=== PATIENT | female | born 1985 | race Caucasian/White ===

== ENCOUNTER 2024-06-04 14:56 | Outpatient (AMB) | payer SELFPAY ==
[2024-06-04 15:06] VITALS: BP 124/78; PULSE 110; RESP 20; TEMP 36.9; O2SAT 98; BMI 20.5
--- NOTE | 2024-06-04 15:06 | GYNCLNT_ITS ---
Vital Signs 06/04/24 15:06 Height 1.6 m Height Method Stated Weight 52.39 kg Weight Measurement Method Standing Scale BMI 20.5 BP 124/78 Blood Pressure Source Automatic Cuff Blood Pressure Location Left Upper Arm Position Sitting Respiration 20 Pulse 110 H Pulse Source Monitor Temp 98.4 F Temp Source Oral Pulse Oximetry (%) 98 Oxygen Delivery Method Room Air Allergies/Home Meds Allergies & Medications Allergies No Known Allergies Allergy (Verified 06/04/24 15:08) Medication Reconciliation fluconazole 150 mg tablet 150 mg PO QDAY 14 days #14 tabs 06/06/24 [Rx] Intake Visit Data Collection New Patient or Established: New Patient (never been to [facility]) Reason for Visit:: IUD REMOVAL Seen by Clinical Staff ONLY (RN/MA): No Talent Buyer Required: No Do You Feel Safe at Home: Yes Authorities Contacted: N/A PCP or OBGYN visit in last 3 months: No Hx Now: No Are you currently on any form of Control: Yes Pain Present Currently: No Pain Scale Used: Reed-Mullins/Numerical Pain scale:: 0 Smoking Status Smoking Status: Never smoker Questionnaires Covid-19 Vaccine Questionnaire Has patient been vacinated for Covid-19 Have you been vacinated for Covid-19: Yes PHQ-9 PHQ-2 Over the last 2 weeks, how often have you been bothered by any of the following problems? 1. Little interest or pleasure in doing things: not at all 2. Feeling down, depressed, or hopeless: not at all Total score: 0 PHQ-9 3. Trouble falling or staying asleep, or sleeping too much: Not at all 4. Feeling tired or having little energy: Not at all 5. Poor appetite or overeating: Not at all 6. Feeling bad about yourself - or that you are a failure or have let yourself or your family down: Not at all 7. Trouble concentrating on things, such as reading the newspaper or watching television: Not at all 8. Moving or speaking so slowly that other people could have noticed? - Or the opposite - being so fidgety or restless that you have been moving around a lot more than usual: not at all 9. Thoughts that you would be better off or of hurting yourself in some way: Not at all Total score: 0 Source: Developed by Drs. Calderon Oliva, Christa Hughes, Pritesh Sarah and colleagues, with an educational jim from [employer]. Depression screen completed yes Social History Living Situation History Marital Status: Lives With: Family Housing: House Housing Other:: Patient is a physical therapist. Her does cardiac u/s 2 children Tobacco History Smoking Status: Never smoker Domestic Abuse History Do You Feel Safe at Home: Yes Past Medical History Past Medical History Have you ever been diagnosed with any of the following: History of Present Illness HPI Narrative The patient is a 38-year-old -0-0-2 history of vaginal delivery x 2 in the past who used to be my patient in [place]. The patient states she can no longer see me due to the fact that her insurance changed. 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 She would like her IUD removed today she will pay walsh for this visit. She states that since she has had it in in the last year and a half she continues to get yeast infections. I will go ahead and call in some Diflucan. She plans to have her have a vasectomy performed. He already has this scheduled. The patient will use condoms for contraception until then. Interestingly she states since they have been using condoms she has not had as many yeast infections. She states that her spouse is circumcised. Review of Systems Review of Systems Narrative Review of Systems: Besides recurrent yeast infections, the patient has no gynecological complaints specifically no weight loss, no diabetes, no abnormal uterine bleeding ,no pelvic pain, no new partners, no foul vaginal discharge. Exam General General Appearance: alert, in no apparent distress, comfortable, cooperative, healthy appearing and well groomed External exam: Present normal external exam Speculum exam: Present normal speculum exam and other (IUD strings not seen well. ) Bimanual exam: Present normal bimanual exam Assessment & Plan Diagnosis / Problem List (1) Encounter for IUD removal: Status: Acute Assessment and Plan: IUD was removed in its entirety and shown to the patient. (2) Contraceptive education: Status: Acute Assessment and Plan: Patient will use condoms for contraception. Her has a vasectomy scheduled. (3) Yeast vaginitis: Status: Acute Assessment and Plan: Diflucan 150 mg #20 called into pharmacy as needed for yeast infections Office Procedures Control Implant/Removal Removal of Contraceptive Device Ambulatory Dept Location: OB Clinic Removal of Contraceptive Device: Yes Procedure Notes Pre-op diagnosis general: Desires IUD removal Post-op diagnosis procedure note: Same Consent obtained: yes-verbal Consent comments: Patient understands the risk of IUD removal including infection. She understands her cycles will probably come back heavier after her Mirena IUD is removed. It has been in place for 1-1/2 years. She will use condoms for contraception. Her has already been scheduled for a vasectomy. Procedure Notes:: After obtaining verbal informed consent for Mirena IUD removal, the patient was placed in the dorsal lithotomy position. A speculum was inserted. Cervix was visualized. IUD strings were not easily seen. An endocervical brush was used to tease the strings out and a long needle-nose forcept was used to gently probe the endocervical canal and the strings were able to be brought down and pulled through the ectocervical os. The entire IUD was then removed by tugging gently on the strings and the IUD was shown to the patient. It was intact and completely removed. The patient tolerated the procedure well with no extra bleeding noted. 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
== END 2024-06-04 15:31 | disposition home or self-care (01) ==
LOC: HODSOBC 14:56
PROVIDERS: PCP Family Medicine; Referring Provider Family Medicine; Supervising Provider Obstetrics & Gynecology; Visit Provider Obstetrics & Gynecology
DX: Z30.432 Encounter for removal of intrauterine contraceptive device (principal); B37.31 Acute candidiasis of vulva and vagina; Z59.71 Insufficient health insurance coverage
CPT/HCPCS: 58301; 99203; G0463